=== PATIENT | female | born 1955 | race Caucasian/White ===

== ENCOUNTER 2017-05-11 11:17 | Outpatient (CLI) | payer OTHER ==
[~2017-05-11 11:17] MED LIST: NABUMETONE500 MG PO; PERCOCET 5/3251 TAB PO
== END 2017-05-11 11:21 | disposition home or self-care (01) ==
LOC: NUCLEAR 11:17
DX: M81.0 Age-related osteoporosis without current pathological fracture (principal)

== ENCOUNTER 2017-05-11 12:42 | Outpatient (CLI) | payer OTHER | END 2017-05-11 14:56 | disposition home or self-care (01) | LOC: MAMO-SONO 12:42 | DX: Z12.31 Encounter for screening mammogram for malignant neoplasm of breast (principal); N63.10 Unspecified lump in the right breast, unspecified quadrant; N63.20 Unspecified lump in the left breast, unspecified quadrant ==

== ENCOUNTER 2017-05-11 12:44 | Outpatient (CLI) | payer OTHER | END 2017-05-11 14:50 | disposition home or self-care (01) | LOC: RAD 12:44 | DX: M25.561 Pain in right knee (principal); I11.9 Hypertensive heart disease without heart failure ==

== ENCOUNTER 2018-05-12 08:57 | Outpatient (CLI) | payer OTHER | END 2018-05-12 09:08 | disposition home or self-care (01) | LOC: MAMO-SONO 08:57 | DX: N60.11 Diffuse cystic mastopathy of right breast (principal); Z12.31 Encounter for screening mammogram for malignant neoplasm of breast; N07.0 Hereditary nephropathy, not elsewhere classified with minor glomerular abnormality ==